=== PATIENT | male | born 1965 | race Caucasian/White ===

== ENCOUNTER 2021-09-11 16:28 | Emergency (ER) | payer SELFPAY ==
[2021-09-11] MEDS ORDERED: Ketorolac 60 MG/2 ML SDV IM ONE (17:28)
--- NOTE | 2021-09-11 17:33 | EDM.PDOC ---
ED HPI GENERAL MEDICAL PROBLEM - General Chief Complaint: Upper Extremity Injury/Pain Stated Complaint: right wrist pain Time Seen by Provider: 09/11/21 16:33 Source of Information: Reports: Patient History Limitations: Reports: No Limitations - History of Present Illness INITIAL COMMENTS - FREE TEXT/NARRATIVE: Patient comes to ER complaining of sudden wrist discomfort that developed on right side after patient spent a good portion of the day scraping. Denies any trauma. Does not report having similar issues in past. No numbness or tingling. Also complains of having chronic back pain that is bothering him but does not say that it is acutely worse than usual. "blew his back out" in past. Is on Gabapentin and chronic narcotics for this. Denies any acute neuro changes. No other complaints. Recently moved to area. - Related Data Allergies Allergy/AdvReac Type Severity Reaction Status Date / Time bee venom protein (honey bee) Allergy Hives Verified 09/11/21 16:35 Home Meds: Home Meds Gabapentin [Neurontin] 300 mg PO BID 09/11/21 [History] HYDROcodone bitartrate [Hysingla ER] 325 mg PO BID 09/11/21 [History] Metoprolol Succinate [Toprol XL] 25 mg PO DAILY 09/11/21 [History] atorvaSTATin [Lipitor] 10 mg PO BEDTIME 09/11/21 [History] Past Medical History Cardiovascular History: Reports: High Cholesterol, Hypertension Musculoskeletal History: Reports: Back Pain, Chronic Review of Systems - Review of Systems Review Of Systems: See Below Constitutional: Reports: No Symptoms Eyes: Reports: Other (no acute changes) Ears: Reports: No Symptoms Nose: Reports: No Symptoms Mouth/Throat: Reports: No Symptoms Respiratory: Reports: Other (No acute changes) Cardiovascular: Reports: No Symptoms GI/Abdominal: Reports: No Symptoms Musculoskeletal: Reports: Back Pain, Joint Pain Skin: Reports: No Symptoms Neurological: Reports: Other (no acute changes) Psychiatric: Reports: No Symptoms ED EXAM, GENERAL - Physical Exam Exam: See Below Exam Limited By: No Limitations General Appearance: Alert, WD/WN, No Apparent Distress, Other (looks older than stated age) Eye Exam: Bilateral Eye: EOMI, PERRL Ears: Hearing Grossly Normal Nose: No: Nasal Deformity, Nasal Swelling, Nasal Drainage Throat/Mouth: Normal Lips, Normal Voice, No Airway Compromise Head: Atraumatic, Normocephalic Neck: Supple Respiratory/Chest: No Respiratory Distress Cardiovascular: Normal Peripheral Pulses GI/Abdominal: Soft (Male) Exam: Deferred Rectal (Males) Exam: Deferred Back Exam: Vertebral Tenderness (lumbar/sacral area) Extremities: Normal Inspection, Other (moves all 4s/equal) Neurological: Alert, Oriented, Normal Cognition, Normal Gait Psychiatric: Normal Affect, Normal Mood Skin Exam: Warm, Dry, Intact Course - Orders/Labs/Meds Meds: Medications Discontinued Medications Generic Name Dose Route Start Last Admin Trade Name Antonina PRN Reason Stop Dose Admin Ketorolac Tromethamine 60 mg 09/11/21 17:28 Ketorolac 60 Mg/2 Ml Sdv IM 09/11/21 17:29 ONETIME ONE - Re-Assessments/Exams Free Text/Narrative Re-Assessment/Exam: 09/11/21 17:39 No xray indicated at this time as no trauma history. Suspect overuse injury. Back pain is a chronic issue and pt is already on narcotics/gabapentin. No acute change in character reported by patient. Will give Toradol and provide right wrist brace. Instructed that he needs to follow up with [facility]/PCP for the chronic back pain and any additional medication changes. Also to follow up as needed for the wrist pain if rest does not improve the pain over the next week. Departure - Departure Time of Disposition: 17:41 Disposition: Home, Self-Care 01 Condition: Good Clinical Impression: Overuse injury Chronic low back pain Qualifiers: Back pain laterality: midline Sciatica presence: without sciatica Qualified Code(s): M54.50 - Low back pain, unspecified - Discharge Information *PRESCRIPTION DRUG MONITORING PROGRAM REVIEWED*: Not Applicable *COPY OF PRESCRIPTION DRUG MONITORING REPORT IN PATIENT PAULO: Not Applicable Instructions: Preventing Overuse Injuries, Adult Referrals: Ayo Bettencourt MD [Primary Care Provider] - Forms: ED Department Discharge Additional Instructions: Wear splint on wrist to help protect it from re-injury. Advance activity as tolerated after a few days. Make an appointment to follow up for your chronic back pain. We do have a local [facility] clinic in [facility]. Follow up at the clinic if your wrist pain has not improved within a week. Ibuprofen or Aleve might be helpful for pain and inflammation.
== END 2021-09-11 18:00 | disposition home or self-care (01) ==
LOC: LL.ED 16:28
DX: M70.841 Other soft tissue disorders related to use, overuse and pressure, right hand (principal); M54.50 Low back pain, unspecified; E78.00 Pure hypercholesterolemia, unspecified; I10 Essential (primary) hypertension; Z79.899 Other long term (current) drug therapy; Z91.030 Bee allergy status
CPT/HCPCS: 96372; 99283; J1885

== ENCOUNTER 2022-04-23 16:39 | Emergency (ER) | payer SELFPAY | END 2022-04-23 17:10 | disposition home or self-care (01) | LOC: LL.ED 16:39 | DX: S30.860A Insect bite (nonvenomous) of lower back and pelvis, initial encounter (principal); F17.210 Nicotine dependence, cigarettes, uncomplicated; Z91.030 Bee allergy status; W57.XXXA Bitten or stung by nonvenomous insect and other nonvenomous arthropods, initial encounter | CPT/HCPCS: 99281; 99283 ==

== ENCOUNTER 2023-04-01 17:56 | Emergency (ER) | payer BC, MEDICAID ==
[2023-04-01] MEDS ORDERED: Take Home: traMADol 50 MG, 4 Tab Pack PO ONE (18:12)
[2023-04-01] MEDS ORDERED: predniSONE 20 MG Tab PO ONE (18:12)
[2023-04-01] MEDS ORDERED: Take Home: predniSONE 20 MG, 4 Tab Pack PO ONE (18:13)
[2023-04-01] MEDS ORDERED: Ketorolac 10 MG Tab PO ONE (18:14)
== END 2023-04-01 18:33 | disposition home or self-care (01) ==
LOC: LL.ED 17:56
DX: M54.2 Cervicalgia (principal); M25.512 Pain in left shoulder; G89.29 Other chronic pain; M77.8 Other enthesopathies, not elsewhere classified; E78.00 Pure hypercholesterolemia, unspecified; I10 Essential (primary) hypertension; Z91.030 Bee allergy status; Z72.0 Tobacco use; Z79.899 Other long term (current) drug therapy
CPT/HCPCS: 99283; A9270-GY; J7512